=== PATIENT | male | born 1970 ===

== ENCOUNTER 2017-03-09 15:42 | Emergency (ER) | payer OTHER ==
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
[2017-03-09 15:56] VITALS: RESP 18
[2017-03-09 16:08] VITALS: BP 165/118; PULSE 85; TEMP 98.4; O2SAT 95
== END 2017-03-09 16:08 | disposition home or self-care (01) ==
LOC: EDUNIT#
DX: S16.1XXA Strain of muscle, fascia and tendon at neck level, initial encounter (principal); V49.40XA Driver injured in collision with unspecified motor vehicles in traffic accident, initial encounter; Y92.410 Unspecified street and highway as the place of occurrence of the external cause; Y99.8 Other external cause status; Y93.89 Activity, other specified